=== PATIENT | male | born 1940 | race Caucasian/White ===

== ENCOUNTER 2018-02-20 14:56 | Inpatient (IN) ==
--- NOTE | 2018-02-20 16:12 | ED ---
HPI General Chief Complaint: Extremity Injury, Lower Stated Complaint: fall Time Seen by Provider: 02/20/18 15:57 History of Present Illness HPI Narrative: This patient complains of left hip pain. 2 hours ago he tripped and fell outside and landed on his hip. He cannot put any weight on it. He cannot stand. His left leg is shorter than his right now. He has history of bilateral artificial hips. Symptom severity is moderate. Duration 2 hours. No alleviating factors. Symptoms exacerbated by movement or weightbearing. He did not have any head injury. Be on the left hip pain he feels well. He denies blood thinners. He does have history of paroxysmal A. fib Related Data Home Medications Medication Instructions Recorded Confirmed insulin glargine [Lantus U-100 20 unit SUBCUT DAILY 02/20/18 02/20/18 Insulin] losartan 02/20/18 metformin 1,000 mg PO BID 02/20/18 02/20/18 Allergies Allergy/AdvReac Type Severity Reaction Status Date / Time No Known Allergies Allergy Uncoded 07/07/12 13:38 Review of Systems ROS: all other systems reviewed are negative PMFSH Social History Social History Substance History: No History of Abuse Smoking Status: Never smoker How Often Do You Have a Drink Containing Alcohol: Never Recent Travel in [facility] within the Last 8 Weeks: No Recent Out of Country Travel within the Last 8 Weeks: No Exam Narrative Exam Narrative: GENERAL: Well-nourished, well-developed patient in no apparent distress. SKIN: Focused skin assessment reveals no rash and nodules. Skin is Warm and dry. HEAD: Atraumatic. Normocephalic. EYES: Pupils equal and round. No scleral icterus. No injection or drainage. ENT: No nasal bleeding or discharge. Mucous membranes pink and moist. NECK: Trachea midline. No JVD. CARDIOVASCULAR: Irregularly irregular rhythm. No murmur appreciated. RESPIRATORY: No accessory muscle use. Clear to auscultation. Breath sounds equal bilaterally. GASTROINTESTINAL: Abdomen soft, non-tender, nondistended. Hepatic and splenic margins not palpable. MUSCULOSKELETAL: Left leg is shortened and externally rotated. He has a well- healed scar on his left mid thigh. Any movement produces pain. No clubbing. No cyanosis. No edema. NEUROLOGICAL: Awake and alert. No obvious cranial nerve deficits. Motor grossly within normal limits. Normal speech. PSYCHIATRIC: Appropriate mood and affect; insight and judgment normal. Course Initial Documented Vital Signs Temperature 98.3 F 02/20/18 15:19 Pulse Rate 85 02/20/18 15:19 Respiratory Rate 20 02/20/18 15:19 Blood Pressure 143/82 H 02/20/18 15:19 Pulse Oximetry 98 02/20/18 15:19 Last Documented Vital Signs Temperature 98.3 F 02/20/18 15:19 Pulse Rate 81 02/20/18 15:26 Respiratory Rate 18 02/20/18 15:26 Blood Pressure 159/96 H 02/20/18 15:26 Pulse Oximetry 99 02/20/18 15:26 Medical Decision Making MDM Narrative Medical decision making narrative: 77-year-old male with a fall and left hip injury. X-rays have been ordered. Left femur x-rays show a oblique fracture through the proximal femur. Labs are reviewed. Case discussed with [facility] admitting hospitalist Dr. Arellano who will admit. I placed multiple calls to the orthopedist coverage of [facility] which is Dr. Batista. Awaiting a callback to discuss. Medical Screen Exam Complete: Yes Emergency Medical Condition: Yes Lab Data Lab results narrative: Mild hyponatremia and thrombocytopenia Result diagrams: 02/20/18 17:50 02/20/18 17:50 Lab Results 02/20/18 02/20/18 02/20/18 Range/Units 17:50 17:50 17:50 WBC 7.7 (4.0-11.0) th/mm3 RBC 3.91 L (4.50-5.90) mil/mm3 Hgb 13.4 (13.0-17.0) gm/dL Hct 37.4 L (39.0-51.0) % MCV 95.8 (80.0-100.0) fL MCH 34.3 H (27.0-34.0) pg MCHC 35.8 (32.0-36.0) % RDW 13.7 (11.6-17.2) % Plt Count 130 L (150-450) th/mm3 MPV 8.4 (7.0-11.0) fL Neut % (Auto) 76.1 H (16.0-70.0) % Lymph % (Auto) 14.9 (9.0-44.0) % Divide % (Auto) 7.8 (0.0-8.0) % Eos % (Auto) 0.8 (0.0-4.0) % Baso % (Auto) 0.4 (0.0-2.0) % Neut # (Auto) 5.9 (1.8-7.7) th/mm3 Lymph # (Auto) 1.1 (1.0-4.8) th/mm3 Divide # (Auto) 0.6 (0.0-0.9) th/mm3 Eos # (Auto) 0.1 (0.0-0.4) th/mm3 Baso # (Auto) 0.0 (0.0-0.2) th/mm3 WBC Differential . Differential Comment Auto diff final PT 11.1 (9.8-11.6) sec INR 1.1 Ratio APTT 25.7 (23.4-31.7) sec Sodium 132 L (136-145) meq/L Potassium 4.7 (3.5-5.1) meq/L Chloride 97 L (98-107) meq/L Carbon Dioxide 25.6 (21.0-32.0) meq/L Anion Gap 9 (5-15) meq/L BUN 15 (7-18) mg/dL Creatinine 0.92 (0.60-1.30) mg/dL Estimated GFR 80 L (>89) mL/min Random Glucose 139 H (74-106) mg/dL Calcium 9.0 (8.5-10.1) mg/dL Imaging Data Attestation: I personally reviewed and interpreted this imaging study as follows : My impression: X-rays of pelvis and femur show a oblique proximal left femur fracture. Pelvis x-rays show hardware in position bilaterally Radiologist's impression: Pelvis X-Ray 02/20/18 16:03 CONCLUSION: No evidence of pelvic fracture. Surgical changes as above. Femur X-Ray 02/20/18 16:04 CONCLUSION: 1. Proximal femoral fracture, as above. Discharge Plan Discharge Disposition Patient Disposition: 30 Still Patient Discharge Details Diagnosis: Fracture of femur Physicians Team ED Provider: Jama Damico Primary Care Provider: Eric Gloria Rxs /Orders / Referrals /Forms Prescriptions: No Action insulin glargine [Lantus U-100 Insulin] 100 unit/mL Solution 20 unit SUBCUT DAILY RF: 0 metformin 1,000 mg Tablet 1,000 mg PO BID RF: 0 losartan RF: 0 Discharge Interventions Interventions: Vital Signs Last Done: 02/20/18 15:26 Status ED Status: With Doctor
--- NOTE | 2018-02-20 17:23 | XR ---
EXAM DATE: 02/20/2018 5:19 PM EST AGE/SEX: 77 years / Male INDICATIONS: Pain from fall on left side. CLINICAL DATA: This is the patient's initial encounter. Patient reports that signs and symptoms have been present for 1 day and indicates a pain score of 9/10. MEDICAL/SURGICAL HISTORY: . Prior fracture, left hip. . Hip replacement, left. Surgical repair , left femur. COMPAR[place]: [facility] [place] 2[place], 02/20/[place]. . FINDINGS: No pelvic fracture demonstrated. Patient has bilateral hip arthroplasties, bipolar on the right and t otal on the left. There is some protrusio of the acetabular component on the left but this appears ch ronic. No evidence of acute hardware failure or loosening. CONCLUSION: No evidence of pelvic fracture. Surgical changes as above. Electronically signed by: Ramiro Curiel MD 02/20/2018 5:22 PM EST
--- NOTE | 2018-02-20 17:24 | XR ---
EXAM DATE: 02/20/2018 5:21 PM EST AGE/SEX: 77 years / Male INDICATIONS: Pain from fall on left side. CLINICAL DATA: This is the patient's initial encounter. Patient reports that signs and symptoms have been present for 1 day and indicates a pain score of 8/10. MEDICAL/SURGICAL HISTORY: . Prior fracture, left hip. . Hip replacement, bilateral. Surgical r epair, left femur. [place] [facility] [place] . FINDINGS: There is a hip arthroplasty in place. Oblique fracture of the proximal femur extending through the di stal femoral component. Remaining osseous structures appear intact. Diffuse vascular calcifications i n the femoral artery. Soft tissues are unremarkable. CONCLUSION: 1. Proximal femoral fracture, as above. Electronically signed by: Francisco Javier Gee MD 02/20/2018 5:22 PM EST
[2018-02-20] MEDS ORDERED: Morphine Inj 4 MG/ML Vial IV.PUSH ONE (17:39)
[2018-02-20 18:03] LABS: Baso % (Auto) 0.4 % (0.0-2.0); Eos # (Auto) 0.1 th/mm3 (0.0-0.4); Eos % (Auto) 0.8 % (0.0-4.0); Hematocrit 37.4 % (39.0-51.0); Hemoglobin 13.4 gm/dL (13.0-17.0); Lymph # (Auto) 1.1 th/mm3 (1.0-4.8); Lymph % (Auto) 14.9 % (9.0-44.0); Mean Corpuscular HGB Conc 35.8 % (32.0-36.0); Mean Corpuscular Hemoglobin 34.3 pg (27.0-34.0); Mean Corpuscular Volume 95.8 fL (80.0-100.0); Mean Platelet Volume 8.4 fL (7.0-11.0); Mono # (Auto) 0.6 th/mm3 (0.0-0.9); Mono % (Auto) 7.8 % (0.0-8.0); Neut # (Auto) 5.9 th/mm3 (1.8-7.7); Neut % (Auto) 76.1 % (16.0-70.0); Platelet Count 130 th/mm3 (150-450); Red Blood Count 3.91 mil/mm3 (4.50-5.90); Red Cell Distribution Width 13.7 % (11.6-17.2); White Blood Count 7.7 th/mm3 (4.0-11.0)
[2018-02-20 18:12] LABS: Activated Partial Thrombo Time 25.7 sec (23.4-31.7); INR 1.1 Ratio; Prothrombin Time 11.1 sec (9.8-11.6)
[2018-02-20 18:25] LABS: Carbon Dioxide 25.6 meq/L (21.0-32.0); Potassium 4.7 meq/L (3.5-5.1)
[2018-02-20] MEDS ORDERED: Bisacodyl 10 MG Supp RECTAL PRN (18:55)
[2018-02-20] MEDS ORDERED: Acetaminophen 325 MG Tablet PO PRN (18:55)
[2018-02-20] MEDS ORDERED: Sod Chloride 0.9% Inj 1,000 ML IV.CONT SCH (19:00)
[2018-02-20] MEDS ORDERED: Dextrose 50% in Water 50 ML Vial IV.PUSH PRN (19:02)
[2018-02-20] MEDS ORDERED: Haloperidol Inj 5 MG/ML Ampul IV.PUSH PRN (19:04)
[2018-02-20] MEDS ORDERED: LORazepam 1 MG Tablet PO PRN (19:04)
--- NOTE | 2018-02-20 19:45 | P.HPIM ---
History of Present Illness Primary Care Physician: Eric Gloria MD History of Present Illness: Pt is 77 yo wm with bilateral hip arthroplasties and prior femur fx who is brought to ED after trip and fall. Pt has left leg pain and found to have spiral fx around the left hip arthroplasty stem. Pt given morphine. found to have afib on monitor. Denies any problems with cp or thomas. His is present. Pt admits to 4-5beers per night but no hx etoh w/d. PMH pafib htn dm 2 hyperlipidemia thrombocytopenia echo 2d: 12/15. mild LVH. 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 neg for ischemia bilateral hip arthroplasties hx left femur fx. FH: NC SH: quit his 1ppd tob over 20yrs ago etoh 4-5 beers per day. MEDS lantus 20u night metformin 1000mg bid losartan 100mg daily asa 81mg daily Diagnosis (1) Fracture of femur: (2) DM2 (diabetes mellitus, type 2): (3) HTN (hypertension): (4) Afib: Medications and Allergies Allergies Allergy/AdvReac Type Severity Reaction Status Date / Time No Known Allergies Allergy Uncoded 07/07/12 13:38 Home Medications Medication Instructions Recorded Confirmed Type insulin glargine [Lantus U-100 20 unit SUBCUT DAILY 02/20/18 02/20/18 History Insulin] losartan 02/20/18 History metformin 1,000 mg PO BID 02/20/18 02/20/18 History Active Medications: Active Medications Acetaminophen (Tylenol) 650 mg PO Q4H PRN PRN Reason: Temp > 100.4 Al Hydroxide/Mg Hydroxide (Milk Of Magnnile Liq) 30 ml PO Q12H PRN PRN Reason: Mild Constipation Bisacodyl (Dulcolax Supp) 10 mg RECTAL DAILY PRN PRN Reason: SEVERE CONSITIPATION Clonidine HCl (Catapres) 0.1 mg PO Q4HR PRN PRN Reason: sbp > 170 Dextrose (D50w Vial) 50 ml IV.PUSH UNSCH PRN PRN Reason: PER HYPOGLYCEMIA PROTOCOL Enalaprilat (Vasotec Inj) 1.25 mg IV.PUSH Q6H PRN PRN Reason: sbp > 180 Flumazenil (Romazecon Inj) 0.2 mg IV.PUSH Q1M PRN PRN Reason: OVERSEDATION Glucagon (Glucagon Inj) 1 mg OTHER PRN PRN PRN Reason: for Hypoglycemia Protocol Haloperidol Lactate (Haldol Inj) 1 mg IV.PUSH Q15M PRN PRN Reason: for severe agitation Dextrose/Sodium Chloride (D5w/Normal Saline Inj) 1,000 mls @ 84 mls/hr IV.CONT .[id number] EARNEST Insulin Aspart (Novolog Insulin Correctional Sugar Inj) 0 unit SQ ACHS AND 3AM EARNEST; Protocol Lactulose (Lactulose Liq) 30 ml PO DAILY PRN PRN Reason: SEVERE CONSITIPATION Lorazepam (Ativan Inj) 1 mg IV.PUSH Q4H PRN PRN Reason: for CIWA 8-10 Lorazepam (Ativan Inj) 2 mg IV.PUSH Q15M PRN PRN Reason: for CIWA > 20 Lorazepam (Ativan Inj) 2 mg IV.PUSH Q1H PRN PRN Reason: for CIWA 15-20 Lorazepam (Ativan Inj) 2 mg IV.PUSH Q2H PRN PRN Reason: for CIWA 11-14 Lorazepam (Ativan) 1 mg PO Q4H PRN PRN Reason: for CIWA 8-10 Lorazepam (Ativan) 2 mg PO Q2H PRN PRN Reason: for CIWA 11-14 Morphine Sulfate (Morphine Inj) 4 mg IV.PUSH Q4H PRN PRN Reason: pain 3-10 Ondansetron HCl (Zofran Inj) 4 mg IV.PUSH Q6H PRN PRN Reason: NAUSEA OR VOMITING Senna/Docusate Sodium (Lizz-Colace) 1 tab PO BID [facility] Sennosides (Senokot) 17.2 mg PO Q12H PRN PRN Reason: Moderate Constipation Physical Exam Vital signs: Last Vital Signs Temp 98.3 F 02/20/18 15:19 Pulse 93 H 02/20/18 19:21 Resp 20 02/20/18 19:21 BP 148/91 H 02/20/18 19:21 Pulse Ox 98 02/20/18 19:21 Narrative: lying in bed oriented no labored breathing heart rg lung cta abd s/nt ext left leg shortened ext rotated good distal pulses and warm feet Results Labs CBC & Chem 7: 02/20/18 17:50 02/20/18 17:50 Caprini VTE Risk Assessment Caprini Risk Assessment Model: Point Value = 1 Point Value = 2 Point Value = 3 Point Value = 5 Age 41-60 Minor surgery BMI > 25 kg/m2 Swollen legs Varicose veins or History of unexplained or recurrent spontaneous Oral contraceptives or hormone replacement Sepsis (< 1 month) Serious lung disease, including pneumonia (< 1 month) Abnormal pulmonary function Acute myocardial infarction Congestive heart failure (< 1 month) History of inflammatory bowel disease Medical patient at bed rest Age 61-74 Arthroscopic surgery Major open surgery (> 45 min) Laparoscopic surgery (> 45 min) Malignancy Confined to bed (> 72 hours) Immobilizing plaster cast Central venous access Age >= 75 History of VTE Family history of VTE Factor V Leiden Prothrombin [id number] Lupus anticoagulant Anticardiolipin antibodies Elevated serum homocysteine Heparin-induced thrombocytopenia Other congenital or acquired thrombophilia Stroke (< 1 month) Elective arthroplasty Hip, pelvis, or leg fracture Acute spinal cord injury (< 1 month) Prophylaxis Regimen: Total Risk Factor Score Risk Level Prophylaxis Regimen 0-1 Low Early ambulation 2 Moderate Order ONE of the following: *Sequential Compression Device (SCD) *Heparin 5000 units SQ BID 3-4 Higher Order ONE of the following medications: *Heparin 5000 units SQ TID *Enoxaparin/Lovenox 40 mg SQ daily (WT < 150 kg, CrCl > 30 mL/min) *Enoxaparin/Lovenox 30 mg SQ daily (WT < 150 kg, CrCl > 10-29 mL/min) *Enoxaparin/Lovenox 30 mg SQ BID (WT < 150 kg, CrCl > 30 mL/min) AND/OR *Sequential Compression Device (SCD) 5 or more Highest Order ONE of the following medications: *Heparin 5000 units SQ TID (Preferred with Epidurals) *Enoxaparin/Lovenox 40 mg SQ daily (WT < 150 kg, CrCl > 30 mL/min) *Enoxaparin/Lovenox 30 mg SQ daily (WT < 150 kg, CrCl > 10-29 mL/min) *Enoxaparin/Lovenox 30 mg SQ BID (WT < 150 kg, CrCl > 30 mL/min) AND *Sequential Compression Device (SCD) Assessment and Plan Assessment (1) Fracture of femur: Code(s): S72.90XA - Unspecified fracture of unspecified femur, initial encounter for closed fracture Status: Acute (2) DM2 (diabetes mellitus, type 2): Code(s): E11.9 - Type 2 diabetes mellitus without complications Status: Acute (3) HTN (hypertension): Code(s): I10 - Essential (primary) hypertension Status: Acute (4) Afib: Code(s): I48.91 - Unspecified atrial fibrillation Status: Acute Plan 1. left femur fx. trip and fall periprosthetic fx 2. afib. mild rvr due to pain in ED 3. htn. elevated due to pain 4. hemachromatosis 5. etoh overuse. proceed to surgery tomorrow with Ortho prn pain control Morphine post op dvt prophylaxis IS PT consult CM consult for snf. playground monitor for afib. hold lantus and metformin. ssi d5ns while npo cont home bp meds. CIWA protocol Ortho consulted _ (1) Fracture of femur Qualifiers: Encounter type: initial encounter Femur location: shaft Fracture alignment: Fracture healing: Fracture morphology: oblique Fracture type: closed Laterality: left Open fracture type: Salter-Sullivan Fracture Type:
[2018-02-20] MEDS: Insulin NovoLOG Aspart Correctional Sugar Inj SQ SCH (21:59)
[2018-02-20] MEDS: Senna/Docusate Sodium 8.6/50 MG Tablet PO SCH (22:00)
[2018-02-20] MEDS: Morphine Inj 4 MG/ML Vial IV.PUSH PRN (22:01)
[2018-02-20] MEDS: Dextrose 5%/NaCl 0.9% Inj 1,000 ML IV.CONT SCH (22:19)
[2018-02-20] MEDS ORDERED: Temazepam 15 MG Capsule PO ONE (23:45)
[2018-02-21] MEDS: Morphine Inj 4 MG/ML Vial IV.PUSH PRN ×5 (03:25→20:40)
[2018-02-21] MEDS: Insulin NovoLOG Aspart Correctional Sugar Inj SQ SCH ×5 (03:25→21:29)
[2018-02-21 04:10] LABS: Baso % (Auto) 0.6 % (0.0-2.0); Eos # (Auto) 0.1 th/mm3 (0.0-0.4); Eos % (Auto) 1.3 % (0.0-4.0); Hematocrit 35.3 % (39.0-51.0); Hemoglobin 12.2 gm/dL (13.0-17.0); Lymph # (Auto) 1.6 th/mm3 (1.0-4.8); Lymph % (Auto) 27.7 % (9.0-44.0); Mean Corpuscular HGB Conc 34.6 % (32.0-36.0); Mean Corpuscular Hemoglobin 33.9 pg (27.0-34.0); Mean Platelet Volume 7.8 fL (7.0-11.0); Mono # (Auto) 0.7 th/mm3 (0.0-0.9); Mono % (Auto) 12.3 % (0.0-8.0); Neut # (Auto) 3.3 th/mm3 (1.8-7.7); Neut % (Auto) 58.1 % (16.0-70.0); Platelet Count 113 th/mm3 (150-450); Red Cell Distribution Width 13.8 % (11.6-17.2); White Blood Count 5.8 th/mm3 (4.0-11.0)
[2018-02-21 04:33] LABS: Anion Gap 7 meq/L (5-15); Blood Urea Nitrogen 11 mg/dL (7-18); Calcium 8.6 mg/dL (8.5-10.1); Carbon Dioxide 25.7 meq/L (21.0-32.0); Chloride 100 meq/L (98-107); Glomerular Filtration Rate Greater Than 89 mL/min (>89); Glucose,Random 204 mg/dL (74-106); Potassium 4.1 meq/L (3.5-5.1); Sodium 133 meq/L (136-145)
--- NOTE | 2018-02-21 06:53 | P.PNOP ---
Subjective Interval history: s/p fall at home in backyard history of left total hip and subsequent revision and also history of previous periprosthetic femur fx reports left hip pain. states it feels like it did last time Physical Exam Vital signs: Vital Signs 02/20/18 15:19 02/20/18 15:26 02/20/18 19:21 Temperature 98.3 F Pulse Rate 85 81 93 H Respiratory Rate 20 18 20 Blood Pressure 143/82 H 159/96 H 148/91 H Pulse Oximetry 98 99 98 02/21/18 00:00 02/21/18 04:00 Temperature 97.7 F 97.3 F L Pulse Rate 86 81 Respiratory Rate 17 17 Blood Pressure 152/83 H 136/77 Pulse Oximetry 97 95 Intake & Output 02/20/18 02/20/18 02/21/18 06:59 18:59 06:59 Weight 72.575 kg 76 kg Other: Date of Last Bowel Movement 02/20/18 Weight On Admission 72.57 kg Narrative: LLE: pain in hip with motion. nvi Results - Labs CBC & Chem 7: 02/21/18 03:51 02/21/18 03:51 Laboratory Results - last 24 hr 02/20/18 02/20/18 02/20/18 17:50 17:50 17:50 WBC 7.7 RBC 3.91 L Hgb 13.4 Hct 37.4 L MCV 95.8 MCH 34.3 H MCHC 35.8 RDW 13.7 Plt Count 130 L MPV 8.4 Neut % (Auto) 76.1 H Lymph % (Auto) 14.9 Crowley % (Auto) 7.8 Eos % (Auto) 0.8 Baso % (Auto) 0.4 Neut # (Auto) 5.9 Lymph # (Auto) 1.1 Crowley # (Auto) 0.6 Eos # (Auto) 0.1 Baso # (Auto) 0.0 WBC Differential . Differential Comment Auto diff final PT 11.1 INR 1.1 APTT 25.7 Sodium 132 L Potassium 4.7 Chloride 97 L Carbon Dioxide 25.6 Anion Gap 9 BUN 15 Creatinine 0.92 Estimated GFR 80 L POC Glucose Random Glucose 139 H Calcium 9.0 Blood Type Antibody Screen 02/20/18 02/21/18 02/21/18 20:33 03:19 03:51 WBC 5.8 RBC 3.60 L Hgb 12.2 L Hct 35.3 L MCV 98.0 MCH 33.9 MCHC 34.6 RDW 13.8 Plt Count 113 L MPV 7.8 Neut % (Auto) 58.1 Lymph % (Auto) 27.7 Crowley % (Auto) 12.3 H Eos % (Auto) 1.3 Baso % (Auto) 0.6 Neut # (Auto) 3.3 Lymph # (Auto) 1.6 Crowley # (Auto) 0.7 Eos # (Auto) 0.1 Baso # (Auto) 0.0 WBC Differential . Differential Comment Auto diff final PT INR APTT Sodium Potassium Chloride Carbon Dioxide Anion Gap BUN Creatinine Estimated GFR POC Glucose 179 H 204 H Random Glucose Calcium Blood Type Antibody Screen 02/21/18 02/21/18 03:51 03:51 WBC RBC Hgb Hct MCV MCH MCHC RDW Plt Count MPV Neut % (Auto) Lymph % (Auto) Crowley % (Auto) Eos % (Auto) Baso % (Auto) Neut # (Auto) Lymph # (Auto) Crowley # (Auto) Eos # (Auto) Baso # (Auto) WBC Differential Differential Comment PT INR APTT Sodium 133 L Potassium 4.1 Chloride 100 Carbon Dioxide 25.7 Anion Gap 7 BUN 11 Creatinine 0.77 Estimated GFR Greater than 89 POC Glucose Random Glucose 204 H Calcium 8.6 Blood Type A Positive Antibody Screen Negative - Imaging Impressions Pelvis X-Ray 02/20/18 16:03 CONCLUSION: No evidence of pelvic fracture. Surgical changes as above. Femur X-Ray 02/20/18 16:04 CONCLUSION: 1. Proximal femoral fracture, as above. Assessment and Plan - Assessment and Plan 1) Left Periprosthetic Hip Fx -npo -consents -will order stat CT scan this AM to eval if fracture chronic or acute -if acute, will proceed with ORIF and possible revision this AM with Amber
--- NOTE | 2018-02-21 09:24 | CT ---
EXAM DATE: 02/21/2018 9:11 AM EST AGE/SEX: 77 years / Male INDICATIONS: Abnormal x-ray. CLINICAL DATA: This is the patient's initial encounter. Patient reports that signs and symptoms have been present for 1 day and indicates a pain score of 10/10. MEDICAL/SURGICAL HISTORY: Cardiovascular disease. . bilateral hip replacement RADIATION DOSE: 11.8 CTDI (mGy) COMPARISON: [facility], CT ABDOMEN AND PELVIS W/ CONTRAST, 08/18/2017. [facility], FEMUR LEFT 2V, 02/20/2018. . TECHNIQUE: Multiple contiguous axial images were acquired using a multirow detector CT scanner witho ut contrast. Multiplanar reconstruction was performed in the sagittal and coronal planes. Using aut omated exposure control and adjustment of the mA and/or kV according to patient size, radiation dose was kept as low as reasonably achievable to obtain optimal diagnostic quality images. DICOM format i mage data is available electronically for review and comparison. FINDINGS: Bones: The patient has a left hip arthroplasty in place. The acetabular and femoral components are w ell placed. There is acute fracturing seen at the proximal and mid femoral shaft around the femoral s tem. These appear acute. Joints: No significant arthropathy or bony hypertrophy is seen. Soft Tissues: There appears to be some prominence of the quadriceps muscles which could relate to so me underlying hemorrhage. CONCLUSION: Acute appearing fracture at the left proximal and mid femoral shaft around the femoral component of t he total hip prosthesis. Electronically signed by: Ramiro Lozano MD 02/21/2018 9:23 AM EST
--- NOTE | 2018-02-21 09:30 | P.PNIM ---
Subjective Interval history: Patient resting in bed offer no new concerns/complaints Physical Exam Vital signs: Last Vital Signs Temp 97.3 F L 02/21/18 04:00 Pulse 81 02/21/18 04:00 Resp 17 02/21/18 04:00 BP 136/77 02/21/18 04:00 Pulse Ox 95 02/21/18 04:00 Narrative: lying in bed oriented no labored breathing heart rg lung cta abd s/nt ext left leg shortened ext rotated good distal pulses and warm feet Results Labs CBC & Chem 7: 02/21/18 03:51 02/21/18 03:51 Assessment and Plan Assessment (1) Fracture of femur: Code(s): S72.90XA - Unspecified fracture of unspecified femur, initial encounter for closed fracture Status: Acute (2) DM2 (diabetes mellitus, type 2): Code(s): E11.9 - Type 2 diabetes mellitus without complications Status: Acute (3) HTN (hypertension): Code(s): I10 - Essential (primary) hypertension Status: Acute (4) Afib: Code(s): I48.91 - Unspecified atrial fibrillation Status: Acute Plan 1. left femur fx. trip and fall periprosthetic fx 2. afib. mild rvr due to pain in ED 3. htn. elevated due to pain 4. hemachromatosis 5. etoh overuse. prn pain control Morphine IS PT consult CM consult for snf. supervisor salvage for afib. diabetic diet hold lantus and metformin. ssi cont home bp meds. CIWA protocol Ortho consulted, awaiting CT scan to determine age of the fracture - if fracture is acute plan to proceed to OR Femur CT 02/21/18 Acute appearing fracture at the left proximal and mid femoral shaft around the femoral component of the total hip prosthesis. Discussed case with Dr. Clark- no surgery at this time - planning for conservative management Discussed possible placement at SNF vs home at time of DC - patient willing to accept SNF if necessary but would prefer to go home. Will talk more after patient has opportunity to work with PT DVT prophylaxis per orthopedic - Lovenox subQ Attending Attestation Patient examined. Assessment and plan formulated with Mehreen Monk PA-C. I agree with the above. Progress Note: Quality VTE Deep Vein Thrombosis/Pulmonary Embolism Present on Admission: No _ (1) Fracture of femur Qualifiers: Encounter type: initial encounter Femur location: shaft Fracture alignment: Fracture healing: Fracture morphology: oblique Fracture type: closed Laterality: left Open fracture type: Warder-Sullivan Fracture Type:
--- NOTE | 2018-02-21 09:47 | P.CONOP ---
[facility] Orthopedics Consult Note - [facility] Consult date: 02/21/18 Chief complaint: Left femur fracture Narrative: Michael is a 77-year-old male. He has a complex history regarding his left hip. He has had 3 surgeries for a left hip replacement. He then fell and fractured the femur and underwent open reduction internal fixation. He developed some infection around the hardware and subsequently had the hardware were removed. These procedures were performed by Dr. roe. He had a fall again last night. He was into the emergency room. There is questionable left femur fracture. CT scan was obtained today. He currently has minimal pain at rest. He has pain with any attempted left hip motion. He describes a mechanical fall. He denies dizziness, syncope, or loss of consciousness. Review of Systems Patient denies fevers, chills, weight loss, headache, visual changes, hearing loss, chest pain, palpitations, shortness of breath, nausea, vomiting, no urinary changes, diarrhea, bowel changes, neck pain, back pain, skin rashes, weakness of extremities, easy bleeding, enlarged lymph nodes, numbness of extremities, anxiety, or depression. He complains of left hip pain Patient's social history, past medical history, and family history were reviewed on chart and with patient. [facility] - History History Provided By: Patient - Medical History Medical History: Medical History (Last Updated 02/21/18 @ 09:44 by Salty Lunsford MD) Diabetes - Surgical History Surgical History: Surgical History (Last Updated 02/21/18 @ 09:43 by Salty Lunsford MD) History of hip replacement, total - Family History Family History: Family History (Last Updated 02/21/18 @ 09:43 by Salty Lunsford MD) Other Family history non-contributory - Social History I have reviewed the patient's Social History: Yes - Tobacco History Second Hand Smoke Exposure: No Tobacco Use In Past 30 Days: No Smoking Status: Former smoker - Alcohol History How Often Do You Have a Drink Containing Alcohol: 4 or more times a week - Substance Use History Substance History: No History of Abuse - Travel History Recent Travel in the [facility] Within the Last 8 Weeks: No Recent Travel Out of the Country Within the Last 8 Weeks: No - Immunization History Tetanus Immunization: Unsure Hx Influenza Vaccine This Season: No Medications and Allergies Active Medications: Active Medications Acetaminophen (Tylenol) 650 mg PO Q4H PRN PRN Reason: Temp > 100.4 Al Hydroxide/Mg Hydroxide (Milk Of Magnesia Liq) 30 ml PO Q12H PRN PRN Reason: Mild Constipation Bisacodyl (Dulcolax Supp) 10 mg RECTAL DAILY PRN PRN Reason: SEVERE CONSITIPATION Clonidine HCl (Catapres) 0.1 mg PO Q4HR PRN PRN Reason: sbp > 170 Dextrose (D50w Vial) 50 ml IV.PUSH UNSCH PRN PRN Reason: PER HYPOGLYCEMIA PROTOCOL Enalaprilat (Vasotec Inj) 1.25 mg IV.PUSH Q6H PRN PRN Reason: sbp > 180 Flumazenil (Romazecon Inj) 0.2 mg IV.PUSH Q1M PRN PRN Reason: OVERSEDATION Glucagon (Glucagon Inj) 1 mg OTHER PRN PRN PRN Reason: for Hypoglycemia Protocol Haloperidol Lactate (Haldol Inj) 1 mg IV.PUSH Q15M PRN PRN Reason: for severe agitation Dextrose/Sodium Chloride (D5w/Normal Saline Inj) 1,000 mls @ 84 mls/hr IV.CONT .[id number] [facility] Last Admin: 02/20/18 22:19 Dose: 84 mls/hr Insulin Aspart (Novolog Insulin Correctional Sugar Inj) 0 unit SQ ACHS AND 3AM [facility]; Protocol Last Admin: 02/21/18 03:25 Dose: 1 unit Lactulose (Lactulose Liq) 30 ml PO DAILY PRN PRN Reason: SEVERE CONSITIPATION Lorazepam (Ativan Inj) 1 mg IV.PUSH Q4H PRN PRN Reason: for CIWA 8-10 Lorazepam (Ativan Inj) 2 mg IV.PUSH Q15M PRN PRN Reason: for CIWA > 20 Lorazepam (Ativan Inj) 2 mg IV.PUSH Q1H PRN PRN Reason: for CIWA 15-20 Lorazepam (Ativan Inj) 2 mg IV.PUSH Q2H PRN PRN Reason: for CIWA 11-14 Lorazepam (Ativan) 1 mg PO Q4H PRN PRN Reason: for CIWA 8-10 Lorazepam (Ativan) 2 mg PO Q2H PRN PRN Reason: for CIWA 11-14 Losartan Potassium (Cozaar) 50 mg PO BID [facility] Morphine Sulfate (Morphine Inj) 4 mg IV.PUSH Q4H PRN PRN Reason: pain 3-10 Last Admin: 02/21/18 06:59 Dose: 4 mg Ondansetron HCl (Zofran Inj) 4 mg IV.PUSH Q6H PRN PRN Reason: NAUSEA OR VOMITING Senna/Docusate Sodium (Lizz-Colace) 1 tab PO BID [facility] Last Admin: 02/20/18 22:00 Dose: 1 tab Sennosides (Senokot) 17.2 mg PO Q12H PRN PRN Reason: Moderate Constipation Allergies Allergy/AdvReac Type Severity Reaction Status Date / Time No Known Allergies Allergy Verified 02/20/18 22:49 Home Medications Medication Instructions Recorded Confirmed Type insulin glargine [Lantus U-100 20 unit SUBCUT DAILY 02/20/18 02/20/18 History Insulin] losartan 02/20/18 History metformin 1,000 mg PO BID 02/20/18 02/20/18 History Exam Vital signs: Vital Signs 02/20/18 15:19 02/20/18 15:26 02/20/18 19:21 Temperature 98.3 F Pulse Rate 85 81 93 H Respiratory Rate 20 18 20 Blood Pressure 143/82 H 159/96 H 148/91 H Pulse Oximetry 98 99 98 02/21/18 00:00 02/21/18 04:00 Temperature 97.7 F 97.3 F L Pulse Rate 86 81 Respiratory Rate 17 17 Blood Pressure 152/83 H 136/77 Pulse Oximetry 97 95 Intake & Output 02/20/18 02/21/18 02/21/18 18:59 06:59 18:59 Intake Total 450 / 450 Output Total 600 / 600 Balance -150 / -150 Weight 72.575 kg 76 kg Intake: Oral 450 / 450 Output: Urine 600 / 600 Other: Date of Last Bowel Movement 02/20/18 Weight On Admission 72.57 kg Narrative: Michael is a pleasant 77-year-old male. He is awake and alert. His and family are at bedside. General: Awake and alert. No acute distress. Appears well-developed well- nourished Head: Normocephalic, atraumatic pupils are equal Neck: Soft, nontender, trachea midline Abdomen: Soft, nondistended Examination of right arm reveals no pain or deformity with shoulder, elbow, or wrist motion. Skin is intact. Radial pulse is palpable. Normal capillary refill in fingers. Sensation is intact in radial, ulnar, and median nerve distributions. [employer] strength is +5. No lymphadenopathy noted. Examination of left arm reveals no pain or deformity with shoulder, elbow, or wrist motion. Skin is intact. Radial pulse is palpable. Normal capillary refill in fingers. Sensation is intact in radial, ulnar, and median nerve distributions. [employer] strength is +5. No lymphadenopathy noted. Examination of left lower extremity reveals no pain or deformity with knee or ankle motion. He has tenderness to palpation along his proximal femur. He has mild hip pain with range of motion of his hip. Skin is intact. Sensation is intact in left foot. Dorsalis pedis pulse is palpable. Normal capillary refill and feet. Thigh and calf compartments are soft. No lymphadenopathy noted. +5 strength of ankle dorsiflexion and plantarflexion. Examination of right lower extremity reveals no pain or deformity with hip, knee , or ankle motion. Skin is intact. Sensation is intact in right foot. Dorsalis pedis pulse is palpable. Normal capillary refill and feet. Thigh and calf compartments are soft. No lymphadenopathy noted. +5 strength of ankle dorsiflexion and plantarflexion. Results - Labs Result Diagrams: 02/21/18 03:51 02/21/18 03:51 Labs: Laboratory Results - last 24 hr 02/20/18 02/20/18 02/20/18 17:50 17:50 17:50 WBC 7.7 RBC 3.91 L Hgb 13.4 Hct 37.4 L MCV 95.8 MCH 34.3 H MCHC 35.8 RDW 13.7 Plt Count 130 L MPV 8.4 Neut % (Auto) 76.1 H Lymph % (Auto) 14.9 Rush % (Auto) 7.8 Eos % (Auto) 0.8 Baso % (Auto) 0.4 Neut # (Auto) 5.9 Lymph # (Auto) 1.1 Rush # (Auto) 0.6 Eos # (Auto) 0.1 Baso # (Auto) 0.0 WBC Differential . Differential Comment Auto diff final PT 11.1 INR 1.1 APTT 25.7 Sodium 132 L Potassium 4.7 Chloride 97 L Carbon Dioxide 25.6 Anion Gap 9 BUN 15 Creatinine 0.92 Estimated GFR 80 L POC Glucose Random Glucose 139 H Calcium 9.0 Blood Type Antibody Screen 1102/21/18 02/21/18 20:33 03:19 03:51 WBC 5.8 RBC 3.60 L Hgb 12.2 L Hct 35.3 L MCV 98.0 MCH 33.9 MCHC 34.6 RDW 13.8 Plt Count 113 L MPV 7.8 Neut % (Auto) 58.1 Lymph % (Auto) 27.7 Rush % (Auto) 12.3 H Eos % (Auto) 1.3 Baso % (Auto) 0.6 Neut # (Auto) 3.3 Lymph # (Auto) 1.6 Rush # (Auto) 0.7 Eos # (Auto) 0.1 Baso # (Auto) 0.0 WBC Differential . Differential Comment Auto diff final PT INR APTT Sodium Potassium Chloride Carbon Dioxide Anion Gap BUN Creatinine Estimated GFR POC Glucose 179 H 204 H Random Glucose Calcium Blood Type Antibody Screen 02/21/18 02/21/18 03:51 03:51 WBC RBC Hgb Hct MCV MCH MCHC RDW Plt Count MPV Neut % (Auto) Lymph % (Auto) Rush % (Auto) Eos % (Auto) Baso % (Auto) Neut # (Auto) Lymph # (Auto) Rush # (Auto) Eos # (Auto) Baso # (Auto) WBC Differential Differential Comment PT INR APTT Sodium 133 L Potassium 4.1 Chloride 100 Carbon Dioxide 25.7 Anion Gap 7 BUN 11 Creatinine 0.77 Estimated GFR Greater than 89 POC Glucose Random Glucose 204 H Calcium 8.6 Blood Type A Positive Antibody Screen Negative - Diagnostic results Imaging: Impressions Pelvis X-Ray 02/20/18 16:03 CONCLUSION: No evidence of pelvic fracture. Surgical changes as above. Femur X-Ray 02/20/18 16:04 CONCLUSION: 1. Proximal femoral fracture, as above. Femur CT 02/21/18 00:00 CONCLUSION: Acute appearing fracture at the left proximal and mid femoral shaft around the femoral component of the total hip prosthesis. Hip CT: report reviewed, image reviewed Assessment and Plan - Assessment and Plan Michael had a fall yesterday resulting in nondisplaced left proximal femur periprosthetic fracture. CT scan and x-rays were reviewed. The fracture appears to be in anatomic alignment with no displacement. Treatment options were discussed with patient. I discussed surgical and nonsurgical options. Given patient's multiple surgeries on his hip and most recent infection after his last surgery, I would recommend a trial of nonoperative treatment. He will need to be toe-touch weightbearing on his left leg with no quad sets or leg lifts. If fracture displaces he will need surgical intervention for open reduction internal fixation. Physical therapy will be consulted--toe-touch weightbearing Diane, Jammie Gill Continue diabetes management We will plan on repeat x-rays of femur after patient has been mobilized with physical therapy Follow-up with Dr. Lunsford in 10 days A mid-level provider in my office (nurse practitioner or physician melter assistant) may see this patient on follow-up visits and continue to implement the objectives of this plan including: Starting or adjusting medications, injections , cast application, orthotics, brace application, physical therapy, radiological studies (including x-ray, MRI, CT, ultrasound, bone scan), vascular studies, neurologic studies, specialist consultation, and proceeding with surgical management, as appropriate.
[2018-02-21] MEDS: Senna/Docusate Sodium 8.6/50 MG Tablet PO SCH ×2 (10:17→20:40)
[2018-02-21] MEDS: Enoxaparin Inj 30 MG/0.3 ML Syringe SQ SCH (10:17)
[2018-02-21] MEDS: Dextrose 5%/NaCl 0.9% Inj 1,000 ML IV.CONT SCH (13:03)
[2018-02-21] MEDS ORDERED: Temazepam 15 MG Capsule PO SCH (21:30)
[2018-02-22] MEDS ORDERED: Temazepam 15 MG Capsule PO PRN (05:04)
[2018-02-22] MEDS: Morphine Inj 4 MG/ML Vial IV.PUSH PRN ×2 (05:53→09:50)
--- NOTE | 2018-02-22 06:31 | P.PNOP ---
Subjective Interval history: s/p left claribel hip fx doing well. pain improving Physical Exam Vital signs: Vital Signs 02/21/18 08:00 02/21/18 12:00 02/21/18 20:00 Temperature 98.6 F 98.5 F Pulse Rate 100 H 99 H Respiratory Rate 16 Blood Pressure 160/88 H 160/86 H Pulse Oximetry 02/21/18 20:05 02/22/18 00:00 02/22/18 00:15 Temperature 98.5 F 98.2 F Pulse Rate 99 H 94 H 90 Respiratory Rate 18 18 Blood Pressure 113/68 135/78 Pulse Oximetry 97 95 02/22/18 04:00 Temperature 98.3 F Pulse Rate 104 H Respiratory Rate 18 Blood Pressure 134/80 Pulse Oximetry 96 Intake & Output 02/21/18 02/21/18 02/22/18 06:59 18:59 06:59 Intake Total 450 / 450 240 / 240 Output Total 600 / 600 400 / 400 1300 / 1300 Balance -150 / -150 -400 / -400 -1060 / -1060 Weight 76 kg 76.4 kg Intake: Oral 450 / 450 240 / 240 Output: Urine 600 / 600 400 / 400 1300 / 1300 Other: Date of Last Bowel Movement 02/20/18 02/20/18 Weight On Admission 72.57 kg Narrative: LLE: pain in hip with motion. nvi Results - Labs CBC & Chem 7: 02/21/18 03:51 02/21/18 03:51 Laboratory Results - last 24 hr 02/21/18 21:21 POC Glucose 244 H - Imaging Impressions Femur CT 02/21/18 00:00 CONCLUSION: Acute appearing fracture at the left proximal and mid femoral shaft around the femoral component of the total hip prosthesis. Assessment and Plan - Assessment and Plan 1) Left Periprosthetic hip fx -NWB -will order repeat xrays today -if fx has shifted at all, will need fixation tomorrow. if maintaining, will proceed with nonop treatment -npo after mn -hold lovenox
[2018-02-22] MEDS: Senna/Docusate Sodium 8.6/50 MG Tablet PO SCH ×2 (07:45→22:58)
[2018-02-22] MEDS: Insulin NovoLOG Aspart Correctional Sugar Inj SQ SCH ×4 (07:53→23:00)
--- NOTE | 2018-02-22 08:59 | P.PNIM ---
Subjective Interval history: Patient reports pain is better today than yesterday he had a hard time participating in PT yesterday due to pain Physical Exam Vital signs: Last Vital Signs Temp 98.3 F 02/22/18 04:00 Pulse 104 H 02/22/18 04:00 Resp 18 02/22/18 04:00 BP 134/80 02/22/18 04:00 Pulse Ox 96 02/22/18 04:00 Narrative: lying in bed oriented no labored breathing heart rg lung cta abd s/nt ext left leg shortened ext rotated good distal pulses and warm feet Results Labs CBC & Chem 7: 02/21/18 03:51 02/21/18 03:51 Assessment and Plan Assessment (1) Fracture of femur: Code(s): S72.90XA - Unspecified fracture of unspecified femur, initial encounter for closed fracture Status: Acute (2) DM2 (diabetes mellitus, type 2): Code(s): E11.9 - Type 2 diabetes mellitus without complications Status: Acute (3) HTN (hypertension): Code(s): I10 - Essential (primary) hypertension Status: Acute (4) Afib: Code(s): I48.91 - Unspecified atrial fibrillation Status: Acute Plan 1. left femur fx. trip and fall periprosthetic fx 2. afib. mild rvr due to pain in ED 3. htn. elevated due to pain 4. hemachromatosis 5. etoh overuse. prn pain control Morphine IS PT consult CM consult for snf. ekg monitor for afib. diabetic diet hold lantus and metformin. ssi cont home bp meds. CIWA protocol Ortho consulted, awaiting CT scan to determine age of the fracture - if fracture is acute plan to proceed to OR Femur CT 02/21/18 Acute appearing fracture at the left proximal and mid femoral shaft around the femoral component of the total hip prosthesis. Orthopedic surgery ordered repeat imaging -per orthopedic surgery if fx has shifted at all, will need fixation tomorrow. if maintaining, will proceed with nonop treatment DVT prophylaxis per orthopedic - Lovenox subQ Progress Note: Quality VTE Deep Vein Thrombosis/Pulmonary Embolism Present on Admission: No _ (1) Fracture of femur Qualifiers: Encounter type: initial encounter Femur location: shaft Fracture alignment: Fracture healing: Fracture morphology: oblique Fracture type: closed Laterality: left Open fracture type: Salter-Sullivan Fracture Type:
--- NOTE | 2018-02-22 09:07 | XR ---
EXAM DATE: 02/22/2018 8:53 AM EST AGE/SEX: 77 years / Male INDICATIONS: Fracture. Patient complains of left hip pain after fall. CLINICAL DATA: This is the patient's subsequent encounter. Patient reports that signs and symptoms h ave been present for 4 - 6 days and indicates a pain score of 8/10. MEDICAL/SURGICAL HISTORY: . Cardiovascular disease. . Bilateral hip replacement. COMPARISON: [facility] [place] 2V, 02/20/2018. . FINDINGS: The appearance of spiral fracture of the proximal left femur is unchanged extending from the low inte rtrochanteric region into the mid diaphyseal region. The left total hip arthroplasty hardware is unch anged in configuration with significant acetabular protrusion CONCLUSION: Mildly displaced spiral fracture of the proximal to mid left femur. Electronically signed by: Ramiro Garcia MD 02/22/2018 9:06 AM EST
[2018-02-22] MEDS ORDERED: Morphine Inj 4 MG/ML Vial IV.PUSH PRN (14:05)
[2018-02-22] MEDS: oxyCODONE/Acetaminophen 10/325 Tablet PO PRN ×2 (14:33→18:14)
[2018-02-23] MEDS: oxyCODONE/Acetaminophen 10/325 Tablet PO PRN ×5 (00:49→20:11)
--- NOTE | 2018-02-23 06:32 | P.PNOP ---
Subjective Interval history: s/p left claribel hip fx doing well. states pain improving and was able to get to chair yesterday Physical Exam Vital signs: Vital Signs 02/22/18 08:00 02/22/18 12:00 02/22/18 16:00 Temperature 99.1 F 98.3 F 98.0 F Pulse Rate 130 H 109 H 106 H Respiratory Rate 14 12 14 Blood Pressure 121/78 148/70 H 113/70 Pulse Oximetry 96 96 98 02/22/18 20:00 02/23/18 00:00 Temperature 99.5 F 98.6 F Pulse Rate 104 H 85 Respiratory Rate 20 19 Blood Pressure 136/77 118/71 Pulse Oximetry 98 97 Intake & Output 02/22/18 02/22/18 02/23/18 06:59 18:59 06:59 Intake Total 240 / 240 Output Total 1300 / 1300 200 / 200 Balance -1060 / -1060 -200 / -200 Weight 76.4 kg Intake: Oral 240 / 240 Output: Urine 1300 / 1300 200 / 200 Other: Date of Last Bowel Movement 02/20/18 02/21/18 02/21/18 Narrative: LLE: pain in hip with motion. no pain in knee or ankle. foot externally rotated while resting in bed. nvi Results - Labs CBC & Chem 7: 02/21/18 03:51 02/21/18 03:51 Laboratory Results - last 24 hr 02/22/18 02/22/18 02/22/18 07:49 12:20 17:07 POC Glucose 215 H 207 H 291 H 02/22/18 20:34 POC Glucose 186 H - Imaging Impressions Hip X-Ray 02/22/18 00:00 CONCLUSION: Mildly displaced spiral fracture of the proximal to mid left femur. Assessment and Plan - Assessment and Plan 1) Left Periprosthetic hip fx -NWB -xrays show that fracture appears to be maintaining. -with patients history of infection, as well as how extensive procedure would be, reasonable to proceed with nonop treatment -patient voices that he agrees with this plan and would prefer to go nonop -continue to work with therapy - for Rehab planning -will restart diet and lovenox today -need to follow up in 1 week in office with Dr Clark to recheck xrays -ortho cleared for discharge once rehab facility arranged [facility] Prescription Drug Monitoring Database has been queried and verified prior to prescribing the controlled substance. Acute pain exception. This patient has normal, predicted, physiological, and time limited response to an adverse mechanical stimulus associated with surgery, trauma, or acute illness as described in my notes. There is a lack of alternative treatment options other than to include the prescribed narcotic treatment for this condition.
--- NOTE | 2018-02-23 06:35 | ECG ---
Date Performed: 02/22/2018 Time Performed: 10:28:59 PTAGE: 77 years EKG: ATRIAL FIBRILLATION ABNORMAL RHYTHM ECG PREVIOUS TRACING : 02/21/2018 12.42 Since the previous tracing, no significant change noted DOCTOR: Talib Barger Interpretating Date/Time 02/23/2018 06:34:13
--- NOTE | 2018-02-23 06:41 | P.PNOP ---
Subjective Interval history: left hip fx Physical Exam Vital signs: Vital Signs 02/22/18 08:00 02/22/18 12:00 02/22/18 16:00 Temperature 99.1 F 98.3 F 98.0 F Pulse Rate 130 H 109 H 106 H Respiratory Rate 14 12 14 Blood Pressure 121/78 148/70 H 113/70 Pulse Oximetry 96 96 98 02/22/18 20:00 02/23/18 00:00 02/23/18 04:00 Temperature 99.5 F 98.6 F 97.7 F Pulse Rate 104 H 85 100 H Respiratory Rate 20 19 20 Blood Pressure 136/77 118/71 133/76 Pulse Oximetry 98 97 97 Intake & Output 02/22/18 02/22/18 02/23/18 06:59 18:59 06:59 Intake Total 240 / 240 480 / 480 Output Total 1300 / 1300 200 / 200 525 / 525 Balance -1060 / -1060 -200 / -200 -45 / -45 Weight 76.4 kg 76.4 kg Intake: Oral 240 / 240 480 / 480 Output: Urine 1300 / 1300 200 / 200 525 / 525 Other: Date of Last Bowel Movement 02/20/18 02/21/18 02/21/18 Narrative: LLE: pain in hip with motion. no pain in knee or ankle. foot externally rotated while resting in bed. nvi Results - Labs CBC & Chem 7: 02/21/18 03:51 02/21/18 03:51 Laboratory Results - last 24 hr 02/22/18 02/22/18 02/22/18 07:49 12:20 17:07 POC Glucose 215 H 207 H 291 H 02/22/18 20:34 POC Glucose 186 H - Imaging Impressions Hip X-Ray 02/22/18 00:00 CONCLUSION: Mildly displaced spiral fracture of the proximal to mid left femur. Assessment and Plan - Assessment and Plan 1) Left Periprosthetic hip fx -NWB -xrays show that fracture appears to be maintaining. -with patients history of infection, as well as how extensive procedure would be, reasonable to proceed with nonop treatment -patient voices that he agrees with this plan and would prefer to go nonop. -patient understands and accepts the risks that he may have permanent limp, rotational deformity, or leg length discrepancy. He accepts and acknowledges these risks and agrees and prefers to still move forward with nonoperative treatment. -continue to work with therapy -CM for Rehab planning -will restart diet and lovenox today -need to follow up in 1 week in office with Dr Clark to recheck xrays -ortho cleared for discharge once rehab facility arranged [facility] Prescription Drug Monitoring Database has been queried and verified prior to prescribing the controlled substance. Acute pain exception. This patient has normal, predicted, physiological, and time limited response to an adverse mechanical stimulus associated with surgery, trauma, or acute illness as described in my notes. There is a lack of alternative treatment options other than to include the prescribed narcotic treatment for this condition.
--- NOTE | 2018-02-23 06:57 | ECG ---
Date Performed: 02/21/2018 Time Performed: 12:42:30 PTAGE: 77 years EKG: ATRIAL FIBRILLATION ABNORMAL RHYTHM ECG PREVIOUS TRACING : 07/09/2012 02.30 Compared to previous tracing, Afib is new DOCTOR: Talib Barger Interpretating Date/Time 02/23/2018 06:53:39
[2018-02-23] MEDS: Senna/Docusate Sodium 8.6/50 MG Tablet PO SCH ×2 (08:04→20:11)
[2018-02-23] MEDS: Insulin NovoLOG Aspart Correctional Sugar Inj SQ SCH ×4 (08:04→21:01)
[2018-02-23 10:08] LABS: Baso % (Auto) 0.7 % (0.0-2.0); Eos # (Auto) 0.2 th/mm3 (0.0-0.4); Eos % (Auto) 2.8 % (0.0-4.0); Hematocrit 31.5 % (39.0-51.0); Hemoglobin 10.9 gm/dL (13.0-17.0); Lymph # (Auto) 1.6 th/mm3 (1.0-4.8); Lymph % (Auto) 23.1 % (9.0-44.0); Mean Corpuscular HGB Conc 34.6 % (32.0-36.0); Mean Corpuscular Hemoglobin 34.5 pg (27.0-34.0); Mean Corpuscular Volume 99.7 fL (80.0-100.0); Mean Platelet Volume 7.9 fL (7.0-11.0); Mono # (Auto) 0.8 th/mm3 (0.0-0.9); Mono % (Auto) 11.8 % (0.0-8.0); Neut # (Auto) 4.2 th/mm3 (1.8-7.7); Neut % (Auto) 61.6 % (16.0-70.0); Platelet Count 111 th/mm3 (150-450); Red Blood Count 3.16 mil/mm3 (4.50-5.90); Red Cell Distribution Width 14.3 % (11.6-17.2); White Blood Count 6.8 th/mm3 (4.0-11.0)
[2018-02-23] MEDS: Enoxaparin Inj 30 MG/0.3 ML Syringe SQ SCH (10:12)
--- NOTE | 2018-02-23 11:10 | P.DS ---
DS: Providers Date of admission: 02/20/18 22:06 Primary care physician: Eric Gloria MD Consults: 02/20/18 19:28 Consult to Orthopedic Surgery Routine Consulting Provider: [facility] Coordinator:: Salty Lunsford Reason for Consultation: L femur fx Notified:: Service Spoke with:: Natalya Date Notified:: 02/20/18 Time Notified:: 19:34 Ordering Provider: RAQUEL Brief History from admission: Pt is 77 yo wm with bilateral hip arthroplasties and prior femur fx who is brought to ED after trip and fall. Pt has left leg pain and found to have spiral fx around the left hip arthroplasty stem. Pt given morphine. found to have afib on monitor. Denies any problems with cp or thomas. His is present. Pt admits to 4-5beers per night but no hx etoh w/d. PMH pafib htn dm 2 hyperlipidemia thrombocytopenia echo 2d: 12/15. mild LVH. 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 neg for ischemia bilateral hip arthroplasties hx left femur fx. FH: NC SH: quit his 1ppd tob over 20yrs ago etoh 4-5 beers per day. MEDS lantus 20u night metformin 1000mg bid losartan 100mg daily asa 81mg daily DS: Diagnosis Discharge Diagnosis (1) Fracture of femur: Status: Acute (2) DM2 (diabetes mellitus, type 2): Status: Acute (3) HTN (hypertension): Status: Acute (4) Afib: Status: Acute DS: Summary 1. left femur fx. trip and fall periprosthetic fx 2. afib. mild rvr due to pain in ED 3. htn. elevated due to pain 4. hemachromatosis 5. etoh overuse. prn pain control Morphine IS PT consult CM consult for snf. monitoring and evaluation advisor for afib. diabetic diet hold lantus and metformin. ssi cont home bp meds. CIWA protocol Ortho consulted, appreciate input recommending nonoperative management Femur CT 02/21/18 Acute appearing fracture at the left proximal and mid femoral shaft around the femoral component of the total hip prosthesis. DVT prophylaxis per orthopedic - Lovenox subQ while in hospital transision to Xarelto at [place] Time Spent with Patient Total time spent providing and/or coordinating discharge services: Quality: VTE Deep Vein Thrombosis/Pulmonary Embolism Present on Admission: No Exam Narrative Exam Narrative: lying in bed oriented no labored breathing heart rg lung cta abd s/nt ext left leg shortened ext rotated good distal pulses and warm feet Results Labs on day of discharge: Labs from last 24 hours 02/23/18 02/23/18 02/22/18 09:43 07:37 20:34 WBC 6.8 RBC 3.16 L Hgb 10.9 L Hct 31.5 L MCV 99.7 MCH 34.5 H MCHC 34.6 RDW 14.3 Plt Count 111 L MPV 7.9 Neut % (Auto) 61.6 Lymph % (Auto) 23.1 [place] % (Auto) 11.8 H Eos % (Auto) 2.8 Baso % (Auto) 0.7 Neut # (Auto) 4.2 Lymph # (Auto) 1.6 [place] # (Auto) 0.8 Eos # (Auto) 0.2 Baso # (Auto) 0.0 WBC Differential . Differential Comment Auto diff final POC Glucose 217 H 186 H 02/22/18 02/22/18 17:07 12:20 WBC RBC Hgb Hct MCV MCH MCHC RDW Plt Count MPV Neut % (Auto) Lymph % (Auto) [place] % (Auto) Eos % (Auto) Baso % (Auto) Neut # (Auto) Lymph # (Auto) [place] # (Auto) Eos # (Auto) Baso # (Auto) WBC Differential Differential Comment POC Glucose 291 H 207 H Impressions ITS Impressions Pelvis X-Ray 02/20/18 16:03 CONCLUSION: No evidence of pelvic fracture. Surgical changes as above. Femur X-Ray 02/20/18 16:04 CONCLUSION: 1. Proximal femoral fracture, as above. Femur CT 02/21/18 00:00 CONCLUSION: Acute appearing fracture at the left proximal and mid femoral shaft around the femoral component of the total hip prosthesis. Hip X-Ray 02/22/18 00:00 CONCLUSION: Mildly displaced spiral fracture of the proximal to mid left femur. Discharge Plan Discharge Disposition Patient Disposition: Discharge to SNF Discharge Condition Condition: Stable Discharge Order Discharge Orders: Discharge Order (Routine); Ordered 02/23/18 Ordered By: Mehreen Monk Orthopedic Clear for Discharge (Routine); Ordered 02/23/18 Ordered By: Leandro Dangelo Physicians Team ED Provider: Jama Damico Primary Care Provider: Eric Gloria Attending Provider: Felix Arellano Other Providers: Salty Lunsford Rxs /Orders / Referrals /Forms Prescriptions: New oxycodone-acetaminophen 5-325 mg Tablet 1 tab PO Q4H PRN (Reason: Acute Pain) Qty: 40 RF: 0 rivaroxaban [Xarelto] 10 mg Tablet 10 mg PO DAILY Qty: 14 RF: 0 Continue insulin glargine [Lantus U-100 Insulin] 100 unit/mL Solution 20 unit SUBCUT DAILY RF: 0 metformin 1,000 mg Tablet 1,000 mg PO BID RF: 0 losartan 50 mg PO DAILY RF: 0 Ambulatory Orders / Order Sets / DME: Walker Folding (Routine) Location: Determined by Patient Ordered By: Leandro Dangelo Wheelchair (1 each) (Routine) Location: Determined by Patient Ordered By: Leandro Dangelo Referrals: Salty Lunsford MD [Physician] - See Instructions (2 weeks) Eric Gloria MD [Primary Care Provider] - See Instructions Discharge Interventions Interventions: Discharge Planning - Case Management Last Done: 02/21/18 10:47 Status ED Status: Left Department
[2018-02-24] MEDS: oxyCODONE/Acetaminophen 10/325 Tablet PO PRN ×3 (05:59→16:22)
--- NOTE | 2018-02-24 06:43 | P.PNOP ---
Subjective Interval history: Resting in bed with pain controlled. Physical Exam Vital signs: Vital Signs 02/23/18 08:00 02/23/18 12:00 02/23/18 16:00 Temperature 98.3 F 97.6 F 98.6 F Pulse Rate 95 H 104 H 97 H Respiratory Rate 14 16 14 Blood Pressure 112/67 117/67 108/59 L Pulse Oximetry 97 97 96 02/23/18 20:00 02/24/18 00:00 02/24/18 04:00 Temperature 98.7 F 98 F 98.3 F Pulse Rate 89 92 H 89 Respiratory Rate 20 18 18 Blood Pressure 116/71 102/68 125/76 Pulse Oximetry 97 97 95 Intake & Output 02/23/18 02/23/18 02/24/18 06:59 18:59 06:59 Intake Total 480 / 480 Output Total 525 / 525 Balance -45 / -45 Weight 76.4 kg Intake: Oral 480 / 480 Output: Urine 525 / 525 Other: Date of Last Bowel Movement 02/21/18 02/21/18 02/21/18 Narrative: Left lower extremity: Pain with movement of hip. No pain with movement of knee. He does have some point tenderness to the calf. His negative Homans sign and his minimal distal edema. He has active dorsiflexion and plantar flexion of foot Results - Labs CBC & Chem 7: 02/23/18 09:43 02/21/18 03:51 Laboratory Results - last 24 hr 02/23/18 02/23/18 02/23/18 07:37 09:43 11:39 WBC 6.8 RBC 3.16 L Hgb 10.9 L Hct 31.5 L MCV 99.7 MCH 34.5 H MCHC 34.6 RDW 14.3 Plt Count 111 L MPV 7.9 Neut % (Auto) 61.6 Lymph % (Auto) 23.1 [place] % (Auto) 11.8 H Eos % (Auto) 2.8 Baso % (Auto) 0.7 Neut # (Auto) 4.2 Lymph # (Auto) 1.6 [place] # (Auto) 0.8 Eos # (Auto) 0.2 Baso # (Auto) 0.0 WBC Differential . Differential Comment Auto diff final POC Glucose 217 H 173 H 02/23/18 02/23/18 16:54 20:09 WBC RBC Hgb Hct MCV MCH MCHC RDW Plt Count MPV Neut % (Auto) Lymph % (Auto) [place] % (Auto) Eos % (Auto) Baso % (Auto) Neut # (Auto) Lymph # (Auto) [place] # (Auto) Eos # (Auto) Baso # (Auto) WBC Differential Differential Comment POC Glucose 221 H 183 H Assessment and Plan - Assessment and Plan 1) Left Periprosthetic hip fx -TTWB -xrays show that fracture appears to be maintaining. -with patients history of infection, as well as how extensive procedure would be, reasonable to proceed with nonop treatment -patient voices that he agrees with this plan and would prefer to go nonop. -patient understands and accepts the risks that he may have permanent limp, rotational deformity, or leg length discrepancy. He accepts and acknowledges these risks and agrees and prefers to still move forward with nonoperative treatment. -continue to work with therapy -CM for Rehab planning -lovenox -need to follow up in 1 week in office with Dr Clark to recheck xrays -ortho cleared for discharge once rehab facility arranged [place] Prescription Drug Monitoring Database has been queried and verified prior to prescribing the controlled substance. Acute pain exception. This patient has normal, predicted, physiological, and time limited response to an adverse mechanical stimulus associated with surgery, trauma, or acute illness as described in my notes. There is a lack of alternative treatment options other than to include the prescribed narcotic treatment for this condition.
[2018-02-24] MEDS: Insulin NovoLOG Aspart Correctional Sugar Inj SQ SCH ×2 (09:55→13:04)
[2018-02-24] MEDS: Enoxaparin Inj 30 MG/0.3 ML Syringe SQ SCH (09:55)
[2018-02-24] MEDS: Senna/Docusate Sodium 8.6/50 MG Tablet PO SCH (09:56)
--- NOTE | 2018-02-24 12:03 | P.PNIM ---
Subjective Interval history: waiting on snf. Physical Exam Vital signs: Last Vital Signs Temp 97.8 F 02/24/18 08:00 Pulse 113 H 02/24/18 08:00 Resp 19 02/24/18 08:00 BP 116/71 02/24/18 08:00 Pulse Ox 98 02/24/18 08:00 Narrative: lying in bed oriented no labored breathing heart rg lung cta abd s/nt ext left leg shortened ext rotated good distal pulses and warm feet Results Labs CBC & Chem 7: 02/23/18 09:43 02/21/18 03:51 Assessment and Plan Assessment (1) Fracture of femur: Code(s): S72.90XA - Unspecified fracture of unspecified femur, initial encounter for closed fracture Status: Acute (2) DM2 (diabetes mellitus, type 2): Code(s): E11.9 - Type 2 diabetes mellitus without complications Status: Acute (3) HTN (hypertension): Code(s): I10 - Essential (primary) hypertension Status: Acute (4) Afib: Code(s): I48.91 - Unspecified atrial fibrillation Status: Acute Plan 1. left femur fx. trip and fall periprosthetic fx 2. afib. mild rvr due to pain in ED 3. htn. elevated due to pain 4. hemachromatosis 5. etoh overuse. Femur CT 02/21/18 Acute appearing fracture at the left proximal and mid femoral shaft around the femoral component of the total hip prosthesis. DC orders written for snf on 02/23. Cleared by Ortho. pain controlled. Per Dr Clark he still might still need surgery. Progress Note: Quality VTE Deep Vein Thrombosis/Pulmonary Embolism Present on Admission: No _ (1) Fracture of femur Qualifiers: Encounter type: initial encounter Femur location: shaft Fracture alignment: Fracture healing: Fracture morphology: oblique Fracture type: closed Laterality: left Open fracture type: Salter-Sullivan Fracture Type:
== END 2018-02-24 16:49 ==
LOC: NEPC 14:56 → NEDA 22:06 → N06 22:52
PROVIDERS: ADMIT Hospitalist; ATTEND Hospitalist
DX: Z72.89 Other problems related to lifestyle; I48.0 Paroxysmal atrial fibrillation; E83.119 Hemochromatosis, unspecified; W01.0XXA Fall on same level from slipping, tripping and stumbling without subsequent striking against object, initial encounter; M97.02XA Periprosthetic fracture around internal prosthetic left hip joint, initial encounter; Z96.641 Presence of right artificial hip joint; E11.9 Type 2 diabetes mellitus without complications; Y92.007 Garden or yard of unspecified non-institutional (private) residence as the place of occurrence of the external cause; D69.6 Thrombocytopenia, unspecified; S72.142A Displaced intertrochanteric fracture of left femur, initial encounter for closed fracture; Z87.891 Personal history of nicotine dependence; Z79.4 Long term (current) use of insulin; E78.5 Hyperlipidemia, unspecified; I10 Essential (primary) hypertension